=== PATIENT | female | born 1975 | race Caucasian/White ===

== ENCOUNTER → 2020-07-18 | Outpatient (CLI) | payer OTHER ==
[~2020-07-18] MED LIST: PERCOCET 7.5-31 EACH PO; ZOFRAN4 MG PO
[2020-07-18 09:55] LABS: HEMOGLOBIN 15.4 gm/dl (12.3-15.3); RED BLOOD COUNT 5.23 M/UL (4.00-5.10); WHITE BLOOD COUNT 7.1 K/UL (4.5-11.0)
[2020-07-18 10:14] LABS: BUN/CREATININE RATIO 26 (0-10)
[2020-07-19 08:23] LABS: THYROXINE (T4) 7.8 ug/dL (4.5-12.0)
[2020-07-19 11:17] LABS: VITAMIN D, 25-HYDROXY 67.2 ng/mL (30.0-100.0)
== END ==
LOC: LAB 09:01
PROVIDERS: Nurse Practitioner
DX: E78.5 Hyperlipidemia, unspecified (principal); R53.83 Other fatigue; E55.9 Vitamin D deficiency, unspecified
CPT/HCPCS: 80053; 80061; 84436; 84443; 84480; 85025